=== PATIENT | male | born 1975 | race Hispanic/Latino ===

== ENCOUNTER 2018-07-10 07:29 | Outpatient (CLI) | payer OTHER ==
--- NOTE | 2018-07-10 08:20 | ULT ---
US Testicular W Doppler HISTORY: Left-sided varicocele COMPARISON: None. FINDINGS: Real-time imaging of the right and left testes were performed. The right testicle measures 3.7 cm left testicle 3.2 cm in size. The left testicle has a slightly heterogeneous echotexture and a few small calcifications but no discrete mass. Right and left epididymal regions are unremarkable. Doppler evaluation with spectral analysis: Normal flow is shown to the testes. A left-sided varicocel e is noted. IMPRESSION: 1. Mildly heterogeneous echotexture to the left testicle without a definite focal discrete mass. 2. Left-sided varicocele.
== END 2018-07-10 07:30 | disposition home or self-care (01) ==
LOC: BICULT 07:29
PROVIDERS: ATTEND Urology
DX: Z31.69 Encounter for other general counseling and advice on procreation (principal); I86.1 Scrotal varices; R93.812 Abnormal radiologic findings on diagnostic imaging of left testicle
CPT/HCPCS: 76870; 93976

== ENCOUNTER 2022-11-16 13:32 | Outpatient (CLI) | payer OTHER | END 2022-11-16 13:33 | disposition home or self-care (01) | LOC: BICRAD 13:32 | PROVIDERS: ATTEND Internal Medicine Rheumatology | DX: M05.79 Rheumatoid arthritis with rheumatoid factor of multiple sites without organ or systems involvement (principal); M19.032 Primary osteoarthritis, left wrist; M06.831 Other specified rheumatoid arthritis, right wrist ==